=== PATIENT | male | born 1950 | race Hispanic/Latino ===

== ENCOUNTER → 2022-08-17 | Outpatient (CLI) | payer OTHER ==
[~2022-08-17] MED LIST: FLUO20CA30 PO; GABA-529 PO; HYDR-4068 PO; MONT-39 PO
== END | disposition home or self-care (01) ==
LOC: RAH 13:59
PROVIDERS: ATTEND Internal Medicine Cardiovascular Disease
DX: Z13.6 Encounter for screening for cardiovascular disorders (principal)
CPT/HCPCS: 75571

== ENCOUNTER 2022-10-10 06:11 | Day surgery (SDC) | payer MEDICARE ==
[2022-10-08 11:39] LABS: BASOPHILS % (AUTO) 0.4 % (0.0-5.0); EOSINOPHILS % (AUTO) 5.3 % (0.0-8.0); HEMATOCRIT 34.1 % (42-54); LYMPHOCYTES % (AUTO) 30.2 % (21.0-51.0); MEAN CORPUSCULAR HEMOGLOBIN 28.6 pg (27.0-33.0); MEAN CORPUSCULAR HGB CONC 32.6 g/dL (32.0-36.0); MEAN CORPUSCULAR VOLUME 87.9 fL (79-99); MONOCYTES % (AUTO) 8.9 % (3.0-13.0); PLATELET COUNT (AUTO) 291 K/uL (130-400); RED BLOOD CELL COUNT(AUTO) 3.88 MIL/uL (4.50-6.20); RED CELL DISTRIBUTION WIDTH 12.9 % (11.0-15.5); WHITE BLOOD COUNT (AUTO) 4.9 K/uL (4.8-10.8)
[2022-10-08 11:41] LABS: APPEARANCE,URINE CLEAR (CLEAR); BILIRUBIN,URINE NEGATIVE (NEGATIVE); COLOR,URINE YELLOW (YELLOW); GLUCOSE, URINE (UA) NEGATIVE (NEGATIVE); KETONES,URINE NEGATIVE (NEGATIVE); LEUKOCYTE ESTERASE ,URINE NEGATIVE Leu/uL (NEGATIVE); NITRATE,URINE NEGATIVE (NEGATIVE); OCCULT BLOOD,URINE NEGATIVE (NEGATIVE); PH,URINE 5.5 (5.0-8.0); PROTEIN,URINE NEGATIVE (NEGATIVE); UROBILINOGEN,URINE 0.2 mg/dL (0.2-1.0)
[2022-10-08 11:53] LABS: CREATININE 1.1 mg/dL (0.5-1.5)
[2022-10-08 11:57] LABS: INR 0.95 (0.85-1.15); PROTHROMBIN TIME 11.1 SEC (9.6-11.6)
[2022-10-08 11:58] LABS: PARTIAL THROMBOPLASTIN TIME 28.9 SEC (26.3-35.5)
[2022-10-08 12:06] LABS: B-TYPE NATRIURETIC PEPTIDE 147 pg/mL (0-100)
[2022-10-09 14:26] VITALS: BP 103/54
[~2022-10-10] VITALS: Ht 167.6 cm; Wt 120.9 kg
[2022-10-10] VITALS (11 sets, daily range): BP systolic 101–155; BP diastolic 38–71
[~2022-10-10 06:11] MED LIST changes: +0.9% NACL 500ML IV.SOLN 500 ML IV SCH; +AMLODIPINE PO; +CARV12.511 PO; +CETI10TA57 PO; +CYCL30DR OP; +DULO20CA18 PO; +ESCI10TA PO; +FINA5TAB41 PO; -FLUO20CA30 PO; +FUROSEMIDE PO; -GABA-529 PO; +GABA300C PO; +HYDR-4060 PO; -HYDR-4068 PO; +LISI20TA24 PO; -MONT-39 PO; +NITR0.4T50 SL; +ROSU10TA28 PO; +TAMS-1 PO
[2022-10-10] MEDS ORDERED: OXYC-38 PO (08:47)
[2022-10-10] MEDS ORDERED: CLOP75TA32 PO (08:47)
[2022-10-10] MEDS ORDERED: LIDOCAINE HCL 400MG/20ML VIAL ONE (08:58)
[2022-10-10] MEDS ORDERED: SODIUM BICARB 50MEQ 50ML VIAL 50 ML ONE (08:58)
[2022-10-10] MEDS ORDERED: NITROGLYCERIN 50MG VIAL ONE (08:58)
[2022-10-10] MEDS ORDERED: MIDAZOLAM HCL 1 MG/ML 2ML VIAL ONE (08:58)
[2022-10-10] MEDS ORDERED: FENTANYL CITRATE PF 50 MCG/1 ML 2ML VIAL ONE (08:58)
[2022-10-10] MEDS ORDERED: HEPARIN 10,000 UNIT/10ML (1,000 UNIT/ML) VIAL ONE (08:58)
[2022-10-10] MEDS ORDERED: IOHEXOL 350 MG/ML 100ML INFUS..BTL IV ONE (08:58)
[2022-10-10] MEDS ORDERED: NICARDIPINE 25MG INJ IV ONE (08:59)
[2022-10-10] MEDS ORDERED: IOHEXOL-350 50ML VIAL IV ONE (09:37)
[2022-10-10] MEDS ORDERED: 0.9%NACL 1000ML 1,000 ML IV SCH (10:30)
== END 2022-10-10 16:00 | disposition home or self-care (01) ==
LOC: DAH 06:11
PROVIDERS: ATTEND Internal Medicine Cardiovascular Disease
DX: R94.39 Abnormal result of other cardiovascular function study (principal); I25.10 Atherosclerotic heart disease of native coronary artery without angina pectoris; I11.0 Hypertensive heart disease with heart failure; I50.32 Chronic diastolic (congestive) heart failure; E78.5 Hyperlipidemia, unspecified; Z98.890 Other specified postprocedural states; Z79.899 Other long term (current) drug therapy; Z96.651 Presence of right artificial knee joint; Z87.891 Personal history of nicotine dependence
CPT/HCPCS: 80048; 83880; 85025; 85610; 85730; 81003; 36415; 71045; 93005; 93458; 96360; 96361; A4223 ×3; C1894 ×2; C1760; Q9965; J7040; J3010; J3490 ×3; J2250; J1644; Q9967 ×2; A4215; A4222; A4221; A4663; A4216; A4606; 99156; 99157

== ENCOUNTER → 2022-10-18 | Outpatient (CLI) | payer MEDICARE ==
[~2022-10-18] MED LIST changes: -0.9% NACL 500ML IV.SOLN 500 ML IV SCH; +CLOP75TA32 PO; -HYDR-4060 PO; +OXYC-38 PO
[2022-10-18 12:26] LABS: CREATININE 1.2 mg/dL (0.5-1.5)
== END | disposition home or self-care (01) ==
LOC: LAB 10:00
PROVIDERS: ATTEND Internal Medicine Cardiovascular Disease
DX: I50.32 Chronic diastolic (congestive) heart failure (principal)
CPT/HCPCS: 36415; 80048; 83880

== ENCOUNTER 2023-01-17 20:07 | Emergency (ER) | payer MEDICARE ==
[~2023-01-17] VITALS: Ht 167.6 cm; Wt 121.6 kg
[2023-01-17 21:04] LABS: APPEARANCE,URINE CLOUDY (CLEAR); BILIRUBIN,URINE NEGATIVE (NEGATIVE); COLOR,URINE YELLOW (YELLOW); GLUCOSE, URINE (UA) NEGATIVE (NEGATIVE); KETONES,URINE NEGATIVE (NEGATIVE); LEUKOCYTE ESTERASE ,URINE 250 Leu/uL (NEGATIVE); NITRATE,URINE NEGATIVE (NEGATIVE); OCCULT BLOOD,URINE SMALL (NEGATIVE); PH,URINE 5.5 (5.0-8.0); PROTEIN,URINE 70 mg/dL (NEGATIVE); UROBILINOGEN,URINE 0.2 mg/dL (0.2-1.0)
[2023-01-17 21:21] LABS: ADD UA MICROSCOPIC YES
[2023-01-17 21:25] LABS: BACTERIA,URINE RARE /HPF (None Seen); MUCUS,URINE RARE LPF (None Seen); SQUAMOUS EPITHELIAL CELL,UR RARE /HPF (0-2); WBC,URINE 51-100 /HPF (0-1)
[2023-01-17] MEDS ORDERED: ALBUTEROL 0.083% 2.5 MG/3 ML INH IH ONE (21:30)
[2023-01-17] MEDS ORDERED: FUROSEMIDE 40MG VIAL IV ONE (21:30)
[2023-01-17] MEDS ORDERED: NITROGLYCERIN 1GM OINT 1 INCH/1GM TD ONE (21:30)
[2023-01-17 21:32] LABS: BASOPHILS # (AUTO) 0.02 K/uL (0.00-0.20); BASOPHILS % (AUTO) 0.2 % (0.0-5.0); HEMATOCRIT 36.1 % (42-54); IMMATURE GRANULOCYTE ABSOLUTE 0.04 K/uL (0-1); LYMPHOCYTES # (AUTO) 0.6 K/uL (1.0-4.8); LYMPHOCYTES % (AUTO) 4.6 % (21.0-51.0); MEAN CORPUSCULAR HEMOGLOBIN 29.2 pg (27.0-33.0); MEAN CORPUSCULAR HGB CONC 33.2 g/dL (32.0-36.0); MEAN CORPUSCULAR VOLUME 87.8 fL (79-99); MONOCYTES # (AUTO) 0.6 K/uL (0.1-1.0); MONOCYTES % (AUTO) 4.6 % (3.0-13.0); NEUTROPHILS # (AUTO) 10.7 K/uL (1.8-7.7); NEUTROPHILS % (AUTO) 90.3 % (40.0-77.0); PLATELET COUNT (AUTO) 221 K/uL (130-400); RED BLOOD CELL COUNT(AUTO) 4.11 MIL/uL (4.50-6.20); WHITE BLOOD COUNT (AUTO) 11.9 K/uL (4.8-10.8)
[2023-01-17 21:41] LABS: CREATININE 1.5 mg/dL (0.5-1.5); POTASSIUM 4.3 mmol/L (3.5-5.1)
[2023-01-17 21:45] LABS: ALBUMIN 3.6 g/dL (3.5-5.0); BILIRUBIN,TOTAL 0.8 mg/dL (0.2-1.0); TOTAL PROTEIN, SERUM 8.2 g/dL (6.0-8.3)
[2023-01-17 21:49] VITALS: PULSE 101; RESP 18
[2023-01-17 21:53] LABS: B-TYPE NATRIURETIC PEPTIDE 226 pg/mL (0-100)
[2023-01-17] MEDS ORDERED: CEFTRIAXONE 2GM VIAL IVPB ONE (22:30)
[2023-01-17 22:47] VITALS: BP 134/62; PULSE 101; RESP 24; O2SAT 98
[2023-01-17] MEDS ORDERED: ALBUHFA IH (22:59)
[2023-01-17] MEDS ORDERED: AUD IH (22:59)
[2023-01-17] MEDS ORDERED: ASPI-1005 PO (22:59)
[2023-01-17] MEDS ORDERED: FURO-152 PO (22:59)
[2023-01-17] MEDS ORDERED: CEPH500B PO (23:09)
[2023-01-18] MEDS ORDERED: MULTI (16:46)
[2023-01-22] MEDS ORDERED: PRED20TA3 PO (10:45)
== END 2023-01-17 23:28 | disposition home or self-care (01) ==
LOC: EDH 20:07
DX: E87.70 Fluid overload, unspecified (principal); I11.0 Hypertensive heart disease with heart failure; I50.9 Heart failure, unspecified; E78.00 Pure hypercholesterolemia, unspecified; N39.0 Urinary tract infection, site not specified; Z79.621 Long term (current) use of calcineurin inhibitor; Z79.899 Other long term (current) drug therapy
CPT/HCPCS: 99285; 96374; 71045; 96375; 80053; 83880; 85025; 87077; 87088; 87186; 81001; 36415; 93005; 94640; J0696; J1940